=== PATIENT | male | born 1970 | race Caucasian/White ===

== ENCOUNTER → 2017-05-11 | Outpatient (CLI) | payer BC ==
[~2017-05-11] MED LIST: OXYC-57 PO; PRED20TA PO
--- NOTE | 2017-05-11 12:36 | DIAGNOSTIC IMAGING REPORT ---
KUB HISTORY: NEPHROLITHIASIS COMPARISON: KUB 02/11/2015. FINDINGS: The bowel gas pattern is unremarkable. There are no dilated loops of small bowel to suggest an obstruction. Stable calcification within the left deep pelvis consistent with a phlebolith. The right kidney is partially obscured by overlying bowel. No definite right renal calculi. No ureteral calculi. Multiple stones within the lower pole the left kidney with the largest measuring 4 mm. These remain unchanged. No pneumoperitoneum or pneumatosis. IMPRESSION: Stable left-sided nephrolithiasis. Electronically signed by: Primitivo Temple M.D. 05/11/2017 12:35 PM Dictated Date/Time: 05/11/2017 12:29 PM
== END | disposition home or self-care (01) ==
LOC: C.RAD 12:01
PROVIDERS: ATTEND Urology
DX: N20.0 Calculus of kidney (principal)

== ENCOUNTER 2017-10-07 14:51 | Emergency (ER) | payer BC, OTHER ==
[~2017-10-07] VITALS: Ht 180.3 cm; Wt 87.3 kg
[2017-10-07 15:02] VITALS: TEMP 36.5; Ht 180.3 cm; Wt 87.3 kg
[2017-10-07] MEDS ORDERED: HYDROmorphone INJ 1 MG/ML SYR IV STA (15:32)
[2017-10-07] MEDS ORDERED: ONDANSETRON INJ 2 MG/ML 2 ML VIAL IV STA (15:32)
[2017-10-07] MEDS ORDERED: KETOROLAC TROMETHAMINE 30 MG/ML VIAL IV STA (15:32)
[2017-10-07 15:53] LABS: BASO % 0.4 %; BASO ABS # 0.03 K/uL (0-0.2); EOS % 1.6 %; EOS ABS # 0.12 K/uL (0-0.5); HEMATOCRIT 43.8 % (42-52); HEMOGLOBIN 15.4 g/dL (14.0-18.0); IG# 0.02 K/uL (0.00-0.02); LYMPH % 28.2 %; LYMPH ABS # 2.18 K/uL (1.2-3.4); MEAN CELL VOLUME 87.8 fL (80-100); MEAN CORPUSCULAR HEMOGLOBIN 30.9 pg (25-34); MEAN CORPUSCULAR HGB CONC 35.2 g/dl (32-36); MEAN PLATELET VOLUME 10.4 fL (7.4-10.4); MONO % 6.1 %; MONO ABS # 0.47 K/uL (0.11-0.59); NEUT % 63.4 %; PLATELET COUNT 185 K/uL (130-400); RED CELL DISTRIBUTION WIDTH CV 13.3 % (11.5-14.5); RED CELL DISTRIBUTION WIDTH SD 42.5 fL (36.4-46.3); WHITE BLOOD COUNT 7.72 K/uL (4.8-10.8)
[2017-10-07 16:09] LABS: CREATININE 1.02 mg/dl (0.60-1.40); POTASSIUM 3.2 mmol/L (3.5-5.1)
[2017-10-07] MEDS ORDERED: ACETAMINOPHEN 500 MG TAB PO STA (16:53)
[2017-10-07] MEDS ORDERED: OXYCODONE HCL IR 5 MG TAB (IMMEDIATE RELEASE) PO STA (16:53)
--- NOTE | 2017-10-07 16:59 | DIAGNOSTIC IMAGING REPORT ---
ABDOMEN AND PELVIS CT WITHOUT CONTRAST CT DOSE: 896.37 mGy.cm HISTORY: L sided flank pain, prior h/o renal stone, +hematuria TECHNIQUE: Multiaxial CT images of the abdomen and pelvis were performed without the use of intravenous and oral contrast according to the standard department stone protocol. A dose lowering technique was utilized adhering to the principles of ALARA. COMPARISON STUDY: KUB 05/11/2017. FINDINGS: The lung bases are essentially clear. A few subcentimeter hypodense lesions within the right hepatic lobe. These are too small to characterize. The unenhanced spleen, adrenal glands, pancreas, and gallbladder are unremarkable. No retroperitoneal lymphadenopathy. No definite bowel wall thickening or obstruction. Normal appendix. A few colonic diverticula. The bladder is unremarkable. There is a 4 mm obstructing stone within the left ureteropelvic junction best seen on image 83. This results in mild left hydronephrosis. There is left perinephric edema. Multiple small bilateral renal calculi. IMPRESSION: 1. A 4 mm obstructing stone within the left ureteropelvic junction resulting in mild left hydronephrosis. 2. Bilateral nephrolithiasis. Electronically signed by: Primitivo Temple M.D. 10/07/2017 4:58 PM Dictated Date/Time: 10/07/2017 4:53 PM
[2017-10-07] MEDS ORDERED: TAMS0.4C38 PO (17:05)
[2017-10-07] MEDS ORDERED: OXYC1TAB3 PO (17:05)
--- NOTE | 2017-10-07 17:12 | EMERGENCY ROOM VISIT NOTE ---
History Report prepared by Luis: Summer Gill Under the Supervision of: Dr. Herb Mcnamara M.D. First contact with patient: 15:12 Chief Complaint: ABDOMINAL PAIN Stated Complaint: EXTREME PAIN L SIDE ABD Nursing Triage Summary: Pt c/o LLQ pain radiating into flank since this afternoon. Hematuria. "I do have a kidney stone so I'm thinking that's what it is". some diarrhea this am. denies n/v. History of Present Illness The patient is a 46 year old male with a past medical history of kidney stones and melanoma who presents to the ED with a cc of worsening left sided abdominal pain beginning this afternoon. The patient describes the pain as a sharp shooting pain that radiates from his back to his front. Positive hematuria and diaphoresis. Negative nausea, vomiting, fevers, chills, and recent trauma. Source of History: patient Onset: this afternoon Position: abdomen (left sided) Quality: sharp, other (shooting) Timing: worsening Associated Symptoms: + diaphoresis, + urinary symptoms (hematuria), No fevers, No chills, No nausea, No vomiting Review of Systems See HPI for pertinent positives and negatives. A total of ten systems were reviewed and were otherwise negative. Past Medical & Surgical Medical Problems: (1) Kidney stone (2) Melanoma Surgical Problems: (1) Hx of lithotripsy Family History No pertinent family history Social History Smoking Status: Never Smoker Marital Status: Housing Status: lives with significant other Occupation Status: employed Current/Historical Medications Scheduled Tamsulosin Hcl (Flomax), 0.4 MG PO DAILY Scheduled PRN Oxycodone Immediate Rel Tab (Roxicodone Ir), 5 MG PO Q6H PRN for Pain Allergies Coded Allergies: Ampicillin (Unverified Allergy, Intermediate, HIVES, 10/07/17) Erythromycin (Unverified Allergy, Unknown, HIVES, 10/07/17) Penicillins (Unverified Allergy, Unknown, HIVES, 10/07/17) Physical Exam Vital Signs Date Time Temp Pulse Resp B/P (MAP) Pulse Ox O2 Delivery O2 Flow Rate FiO2 10/07/17 17:46 88 18 178/64 99 Room Air 10/07/17 15:02 36.5 82 18 186/115 99 Room Air Physical Exam GENERAL: Awake, alert, uncomfortable-appearing,in pain, NAD HENT: Normocephalic, atraumatic. EYES: Normal conjunctiva. Sclera non-icteric. NECK: Supple. No nuchal rigidity. FROM. RESPIRATORY: CTAB, no rhonchi, wheezing, crackles CARDIAC: RRR, no MRG ABDOMEN: Soft, NTND, BS+ MSK: No chest wall TTP, no LE edema, left CVA TTP, left flank pain NEURO: GCS 15, CN 2-12 intact, moves all 4s on command SKIN: No rash or jaundice noted. Medical Decision & Procedures ER Provider Diagnostic Interpretation: Radiology results as stated below per my review and radiologist interpretation: ABDOMEN AND PELVIS CT WITHOUT CONTRAST CT DOSE: 896.37 mGy.cm HISTORY: L sided flank pain, prior h/o renal stone, +hematuria TECHNIQUE: Multiaxial CT images of the abdomen and pelvis were performed without the use of intravenous and oral contrast according to the standard department stone protocol. A dose lowering technique was utilized adhering to the principles of ALARA. COMPARISON STUDY: KUB 05/11/2017. FINDINGS: The lung bases are essentially clear. A few subcentimeter hypodense lesions within the right hepatic lobe. These are too small to characterize. The unenhanced spleen, adrenal glands, pancreas, and gallbladder are unremarkable. No retroperitoneal lymphadenopathy. No definite bowel wall thickening or obstruction. Normal appendix. A few colonic diverticula. The bladder is unremarkable. There is a 4 mm obstructing stone within the left ureteropelvic junction best seen on image 83. This results in mild left hydronephrosis. There is left perinephric edema. Multiple small bilateral renal calculi. IMPRESSION: 1. A 4 mm obstructing stone within the left ureteropelvic junction resulting in mild left hydronephrosis. 2. Bilateral nephrolithiasis. Electronically signed by: Primitivo Temple M.D. 10/07/2017 4:58 PM Dictated Date/Time: 10/07/2017 4:53 PM Laboratory Results 10/07/17 15:20 Red Blood Count 4.99, Mean Corpuscular Volume 87.8, Mean Corpuscular Hemoglobin 30.9, Mean Corpuscular Hemoglobin Concent 35.2, Mean Platelet Volume 10.4, Neutrophils (%) (Auto) 63.4, Lymphocytes (%) (Auto) 28.2, Monocytes (%) (Auto) 6.1, Eosinophils (%) (Auto) 1.6, Basophils (%) (Auto) 0.4, Neutrophils # (Auto) 4.90, Lymphocytes # (Auto) 2.18, Monocytes # (Auto) 0.47, Eosinophils # (Auto) 0.12, Basophils # (Auto) 0.03 10/07/17 15:20 Test 10/07/17 15:20 10/07/17 15:40 White Blood Count 7.72 K/uL (4.8-10.8) Red Blood Count 4.99 M/uL (4.7-6.1) Hemoglobin 15.4 g/dL (14.0-18.0) Hematocrit 43.8 % (42-52) Mean Corpuscular Volume 87.8 fL (80-100) Mean Corpuscular Hemoglobin 30.9 pg (25-34) Mean Corpuscular Hemoglobin Concent 35.2 g/dl (32-36) Platelet Count 185 K/uL (130-400) Mean Platelet Volume 10.4 fL (7.4-10.4) Neutrophils (%) (Auto) 63.4 % Lymphocytes (%) (Auto) 28.2 % Monocytes (%) (Auto) 6.1 % Eosinophils (%) (Auto) 1.6 % Basophils (%) (Auto) 0.4 % Neutrophils # (Auto) 4.90 K/uL (1.4-6.5) Lymphocytes # (Auto) 2.18 K/uL (1.2-3.4) Monocytes # (Auto) 0.47 K/uL (0.11-0.59) Eosinophils # (Auto) 0.12 K/uL (0-0.5) Basophils # (Auto) 0.03 K/uL (0-0.2) RDW Standard Deviation 42.5 fL (36.4-46.3) RDW Coefficient of Variation 13.3 % (11.5-14.5) Immature Granulocyte % (Auto) 0.3 % Immature Granulocyte # (Auto) 0.02 K/uL (0.00-0.02) Anion Gap 6.0 mmol/L (3-11) Est Creatinine Clear Calc Drug Dose 94.3 ml/min Estimated GFR () 100.3 Estimated GFR (Non- 86.5 BUN/Creatinine Ratio 11.1 (10-20) Calcium Level 9.0 mg/dl (8.5-10.1) Urine Color ORANGE Urine Appearance TURBID (CLEAR) Urine pH 7.5 (4.5-7.5) Urine Specific [place] 1.019 (1.000-1.030) Urine Protein TRACE (NEG) Urine Glucose (UA) NEG (NEG) Urine Ketones TRACE (NEG) Urine Occult Blood 3+ (NEG) Urine Nitrite NEG (NEG) Urine Bilirubin NEG (NEG) Urine Urobilinogen NEG (NEG) Urine Leukocyte Esterase TRACE (NEG) Urine WBC (Auto) 1-5 /hpf (0-5) Urine RBC (Auto) >30 /hpf (0-4) Urine Hyaline Casts (Auto) 1-5 /lpf (0-5) Urine Epithelial Cells (Auto) 10-20 /lpf (0-5) Urine Bacteria (Auto) NEG (NEG) Laboratory results reviewed by me Medications Administered Medications (Trade) Dose Ordered Sig/Ce Route Start Time Stop Time Status Last Admin Dose Admin Ondansetron HCl (Zofran Inj) 4 mg NOW STAT IV 10/07/17 15:32 10/07/17 15:33 DC 10/07/17 15:40 4 MG Ketorolac Tromethamine (Toradol Inj) 30 mg NOW STAT IV 10/07/17 15:32 10/07/17 15:33 DC 10/07/17 15:41 30 MG Hydromorphone HCl (Dilaudid Inj) 1 mg NOW STAT IV 10/07/17 15:32 10/07/17 15:33 DC 10/07/17 15:41 1 MG Oxycodone HCl (Roxicodone Immediate Rel Tab) 5 mg NOW STAT PO 10/07/17 16:53 10/07/17 16:55 DC 10/07/17 17:14 5 MG Acetaminophen (Tylenol Tab) 1,000 mg NOW STAT PO 10/07/17 16:53 10/07/17 16:55 DC 10/07/17 17:14 1,000 MG Tamsulosin HCl (Flomax Cap) 0.4 mg STK-MED ONCE .ROUTE 10/07/17 17:40 10/07/17 17:41 DC 10/07/17 17:40 0.4 MG Oxycodone HCl (Roxicodone Immediate Rel 5MG Home Pack) 1 homepack STK-MED ONCE PO 10/07/17 17:41 10/07/17 17:42 DC 10/07/17 17:41 1 [facility] Course 1528: The patient was evaluated in room C3. A complete history and physical exam was performed. 1645: I reevaluated the patient and he is doing okay. 172: I reevaluated the patient. Discussed results and discharge instructions: he verbalized understanding and agreement. The patient is ready for discharge. Medical Decision The patient is a 46 year old male with a past medical history of kidney stones and melanoma who presents to the ED with a cc of worsening left sided abdominal pain beginning this afternoon. Etiologies such as renal colic, appendicitis, diverticulitis, mesenteric ischemia, aortic pathology, infections, inflammatory bowel disease, PUD, biliary pathology, UTI, as well as others were entertained. Patient was seen and evaluated the bedside. Patient had complained of some left -sided flank pain. Patient does have a known history of nephrolithiasis however it has been sometime since he has had issues with this. Patient did complain of some hematuria. Patient did have blood work that was completed along with pain control CT to look for kidney stone. Patient's blood work was fairly unremarkable. Patient white blood cell count normal. Patient kidney function with a normal GFR. Patient's urinalysis consistent with blood but without infection. Patient's CT did show a 4 mm obstructing stone at the UPJ. Mild hydro present. There does appear to be a possible kidney stone more distally. Patient was informed of these findings. Patient does have some mild [place]; however, the patient has been urinating well and the patient's pain is improved with normal kidney function. Given the size of the stone, I believe he is suitable for outpatient follow-up and treatment. Patient was given return precautions and warning signs which were to return to the emergency department. Patient was given a first dose of Flomax. Patient was given Flomax as well as pain medication as Rx's and told to take this pain medication only after taking Motrin and Tylenol if he still had discomfort. Patient was told to adequately hydrate with clear liquids and to try to avoid things like caffeine and alcohol. Patient was told he may follow up with his primary urologist as an outpatient as needed. Patient was deemed suitable for outpatient follow-up and treatment at this time. Patient was given strict follow -up, discharge, and return precautions. All questions were answered. Patient was deemed suitable for outpatient follow-up at this time. Patient agreed with the plan of care and was safely discharged home. The chart was completed utilizing [employer] Speech voice recognition software. Grammatical errors, random word insertions, pronoun errors, and incomplete sentences are an occasional consequence of this system due to software limitations, ambient noise, and hardware issues. Any formal questions or concerns about the content, text, or information contained within the body of this dictation should be directly addressed to the physician for clarification. Medication Reconcilliation Current Medication List: was personally reviewed by me Blood Pressure Screening Patient's blood pressure: Elevated blood pressure Blood pressure disposition: Elevated BP felt to be situational Impression Primary Impression: Kidney stone Additional Impression: Hypokalemia Scribe Attestation The scribe's documentation has been prepared under my direction and personally reviewed by me in its entirety. I confirm that the note above accurately reflects all work, treatment, procedures, and medical decision making performed by me. Departure Information Dispostion Home / Self-Care Prescriptions Oxycodone Immediate Rel Tab (ROXICODONE IR) 5 Mg Tab 5 MG PO Q6H Y for Pain, #15 TAB Prov: Herb Mcnamara M.D. 10/07/17 Tamsulosin Hcl (FLOMAX) 0.4 Mg Cap 0.4 MG PO DAILY for 10 Days, #10 CAP Prov: Herb Mcnamara M.D. 10/07/17 Referrals No Doctor, Assigned (PCP) Jamal Sanchez MD Forms Call Back Authorization, HOME CARE DOCUMENTATION FORM, IMPORTANT VISIT INFORMATION Patient Instructions Kidney Stones - [facility], Kidney Stones [facility], [facility] Additional Instructions Please return to the emergency department if you have worsening or recurrent symptoms not amenable to at-home treatment. Please call for a follow-up appointment with her primary care physician. Please take your medications as prescribed. If you have other concerns and/or complaints please feel free to also call your primary care physician's office or return the ED for further evaluation, management, and treatment. You may take 600 mg Ibuprofen every 6 hours as needed for pain with food for no more than 2 consecutive days. You may take tylenol 1000 mg every 6 hours as needed for pain. You may take motrin and tylenol separately or at the same time. Take your medications as prescribed. Please follow-up with your urologist as needed. You have been examined and treated today on an emergency basis only. This is not a substitute for, or an effort to provide, complete comprehensive medical care. It is impossible to recognize and treat all injuries or illnesses in a single emergency department visit. It is therefore important that you follow up closely with [facility], your PCP, and/or your specialist(s). Call as soon as possible for an appointment. Thank you for your time and consideration. I look forward to speaking with you again soon. Please don't hesitate to call us if you have any questions. Problem Qualifiers
[2017-10-07] MEDS ORDERED: OXYCODONE IR HOME PACK PO ONE ×2 (17:15→17:41)
[2017-10-07] MEDS ORDERED: TAMSULOSIN HCL 0.4 MG CAP PO ONE (17:15)
[2017-10-07] MEDS ORDERED: TAMSULOSIN HCL 0.4 MG CAP ONE (17:40)
[2017-10-07 17:46] VITALS: BP 178/64; PULSE 88; O2SAT 99
== END 2017-10-07 17:50 | disposition home or self-care (01) ==
LOC: C.EDB 14:52 → C.EDC 17:50
DX: N20.0 Calculus of kidney (principal); E87.6 Hypokalemia; Z85.820 Personal history of malignant melanoma of skin

== ENCOUNTER → 2017-10-09 | Outpatient (CLI) | payer OTHER ==
[~2017-10-09] MED LIST changes: +FLM4 PO; -OXYC-57 PO; +OXYC1TAB3 PO; -PRED20TA PO; +TAMS0.4C38 PO
--- NOTE | 2017-10-09 15:49 | DIAGNOSTIC IMAGING REPORT ---
KUB CLINICAL HISTORY: N20.0 [id number] COMPARISON STUDY: 05/11/2017 , CT scan dated 10/07/2017 FINDINGS: The renal shadows are partially obscured by overlying bowel gas and fecal material. Multiple left renal calculi are visualized, the largest of which measures 3 mm. There is a 4 mm calcification within the left pelvic basin which was not present on the prior study. This is viewed as suspicious for a distal left ureteral calculus. IMPRESSION: 1. 4 mm left pelvic basin calcification, suspicious for distal left ureteral calculus 2. Left-sided nephrolithiasis 3. The right renal calculus described on the recent CT scan is difficult to visualize Electronically signed by: Herbert Butler M.D. 10/09/2017 3:47 PM Dictated Date/Time: 10/09/2017 3:46 PM
[2017-10-09 18:53] LABS: BASO % 0.4 %; BASO ABS # 0.03 K/uL (0-0.2); EOS % 2.4 %; EOS ABS # 0.19 K/uL (0-0.5); HEMATOCRIT 41.3 % (42-52); HEMOGLOBIN 14.7 g/dL (14.0-18.0); IG# 0.02 K/uL (0.00-0.02); LYMPH % 27.7 %; LYMPH ABS # 2.19 K/uL (1.2-3.4); MEAN CELL VOLUME 87.3 fL (80-100); MEAN CORPUSCULAR HEMOGLOBIN 31.1 pg (25-34); MEAN CORPUSCULAR HGB CONC 35.6 g/dl (32-36); MEAN PLATELET VOLUME 10.2 fL (7.4-10.4); MONO % 10.5 %; MONO ABS # 0.83 K/uL (0.11-0.59); NEUT % 58.7 %; NEUT ABS # 4.65 K/uL (1.4-6.5); PLATELET COUNT 183 K/uL (130-400); RED CELL DISTRIBUTION WIDTH CV 13.3 % (11.5-14.5); RED CELL DISTRIBUTION WIDTH SD 42.7 fL (36.4-46.3); WHITE BLOOD COUNT 7.91 K/uL (4.8-10.8)
[2017-10-09 19:17] LABS: BLOOD UREA NITROGEN 9 mg/dl (7-18); CARBON DIOXIDE 26 mmol/L (21-32); CREATININE 0.87 mg/dl (0.60-1.40); POTASSIUM 3.6 mmol/L (3.5-5.1); SODIUM 137 mmol/L (136-145)
== END | disposition home or self-care (01) ==
LOC: C.RAD 15:16
PROVIDERS: ATTEND Nurse Practitioner Adult Health
DX: Z00.00 Encounter for general adult medical examination without abnormal findings (principal); N20.0 Calculus of kidney

== ENCOUNTER → 2017-10-10 | Outpatient (CLI) | payer OTHER ==
--- NOTE | 2017-10-10 18:36 | DIAGNOSTIC IMAGING REPORT ---
TWO VIEW CHEST CLINICAL HISTORY: Nephrolithiasis. Preoperative examination. FINDINGS: PA and lateral chest radiographs are obtained. No prior studies are available for comparison at the time of dictation. The cardiomediastinal silhouette is unremarkable. The lungs and pleural spaces are clear. There is no pneumothorax. The bony thorax appears intact. IMPRESSION: No active disease in the chest. Electronically signed by: Brenton Little M.D. 10/10/2017 6:34 PM Dictated Date/Time: 10/10/2017 6:34 PM
== END | disposition home or self-care (01) ==
LOC: C.RAD 17:41
PROVIDERS: ATTEND Nurse Practitioner Adult Health
DX: N20.0 Calculus of kidney (principal)

== ENCOUNTER → 2017-10-12 | Day surgery (SDC) | payer OTHER ==
[2017-10-10 13:28] VITALS: Ht 180.3 cm; Wt 83.6 kg
[~2017-10-12] VITALS: Ht 180.3 cm; Wt 83.6 kg
[~2017-10-12] MED LIST changes: +CIPROFLOXACIN / D5W 400 MG IV SCH; +LACTATED RINGER'S 1000ML 1,000 ML IV SCH; -TAMS0.4C38 PO
--- NOTE | 2017-10-15 13:27 | EDITING REQUIRED CODING QUERY ---
CODING CLARIFICATION Please specify below the reason for the cancelled procedure on 10/12/17: REASON PROCEDURE CANCELLED: NSAID use for renal stone, distal stone passed Thank you for your assistance, Shoshana Bland - Validation Technician
== END | disposition home or self-care (01) ==
LOC: X.SURG 08:48
PROVIDERS: ATTEND Urology
DX: N20.1 Calculus of ureter (principal); Z53.09 Procedure and treatment not carried out because of other contraindication; L57.0 Actinic keratosis; N40.0 Benign prostatic hyperplasia without lower urinary tract symptoms; Z85.828 Personal history of other malignant neoplasm of skin; Z80.8 Family history of malignant neoplasm of other organs or systems

== ENCOUNTER → 2017-10-12 | Outpatient (CLI) | payer OTHER ==
[~2017-10-12] MED LIST changes: -CIPROFLOXACIN / D5W 400 MG IV SCH; -LACTATED RINGER'S 1000ML 1,000 ML IV SCH
--- NOTE | 2017-10-12 08:46 | DIAGNOSTIC IMAGING REPORT ---
KUB HISTORY: N20.0 Nephrolithiasis BE DONE EITHER THE NIGHT BEFORE OR MORNI COMPARISON: KUB 10/09/2017. FINDINGS: The bowel gas pattern is unremarkable. There are no dilated loops of small bowel to suggest an obstruction. Stable left renal calculi with the largest in the lower pole measuring 3 mm. The right renal shadow is obscured by overlying bowel gas. No definite right renal calculi. No ureteral calculi. Stable round calcification within the left deep pelvis consistent with a phlebolith. No pneumoperitoneum or pneumatosis. IMPRESSION: 1. Stable left-sided nephrolithiasis. 2. No ureteral calculi. Electronically signed by: Primitivo Temple M.D. 10/12/2017 8:45 AM Dictated Date/Time: 10/12/2017 8:43 AM
== END | disposition home or self-care (01) ==
LOC: C.RAD 08:07
PROVIDERS: ATTEND Nurse Practitioner Adult Health
DX: N20.0 Calculus of kidney (principal)

== ENCOUNTER → 2017-10-19 | Day surgery (SDC) | payer OTHER ==
[2017-10-16 08:59] VITALS: Ht 180.3 cm; Wt 83.6 kg
[~2017-10-19] VITALS: Ht 180.3 cm; Wt 83.6 kg
[~2017-10-19] MED LIST changes: +ATROPINE SULFATE 0.1 MG/ML 5ML SYR IV PRN; +CIPROFLOXACIN 400MG / D5W IV SCH; +DEXAMETHASONE SOD INJ 4 MG/ML VIAL IV PRN; +DEXAMETHASONE SOD INJ 4 MG/ML VIAL ONE; +EpHEDrine SULFATE INJ 50 MG/ML AMP IV PRN; +FENTANYL CITRATE INJ 50 MCG/1 ML 2 ML VIAL IV PRN; +FENTANYL CITRATE INJ 50 MCG/1 ML 2 ML VIAL ONE; +KETOROLAC TROMETHAMINE 30 MG/ML VIAL IV. PRN; +KETOROLAC TROMETHAMINE 30 MG/ML VIAL ONE; +LABETALOL HCL IV 5 MG/ML 20ML IV PRN; +LACTATED RINGER'S 1000ML 1,000 ML IV SCH; +LIDOCAINE HCL 2% 2 ML VIAL (20MG/ML) ONE; +METOCLOPRAMIDE HCL INJ 5 MG/ML 2 ML VIAL IV PRN; +MIDAZOLAM HCL 1 MG/ML 2ML VIAL ONE; +MoRPHine SULFATE 10 MG/ML CARP/VIAL IV PRN; +ONDANSETRON INJ 2 MG/ML 2 ML VIAL IV PRN; +ONDANSETRON INJ 2 MG/ML 2 ML VIAL ONE; +OXYCODONE/ACETAMINOPHEN 7.5-325 TAB PO PRN; +PHENYLEPHRINE 100MCG/ML 5ML SYR IV PRN; +PHENYLEPHRINE HCL INJ 10 MG/ML VIAL ONE; +PROPOFOL IV EMULSION 10 MG/ML 20 ML VIAL IV ONE
--- NOTE | 2017-10-19 09:13 | History & Physical Bridge - SC ---
H&P Re-Evaluation Bridge Note: I have examined the patient, reviewed the History & Physical and in the interval since the performance of the History & Physical I have noted the following changes of clinical significance: No changes noted
--- NOTE | 2017-10-19 09:18 | Discharge Instructions ---
Discharge Instructions Date of Service Oct 19, 2017. Admission Reason for Admission: Stones Discharge Discharge Diagnosis / Problem: L Stone Discharge Goals Goal(s): Decrease discomfort, Improve function Activity Recommendations Activity Limitations: resume your previous activity Lifting Limitations: gradually increase as tolerated Exercise/Sports Limitations: as tolerated Shower/Bathe: no limitations . Instructions / Follow-Up Instructions / Follow-Up May have blood in urine or pass small sediments or fragments. Call if any fevers or chills. May have flank pain or bruising. Current Hospital Diet Patient's current hospital diet: Discharge Diet Recommended Diet: Regular Diet Procedures Procedures Performed: L ESWL Pending Studies Studies pending at discharge: no Medical Emergencies . Who to Call and When: Medical Emergencies: If at any time you feel your situation is an emergency, please call 911 immediately. . Non-Emergent Contact Non-Emergency issues call your: Primary Care Provider, Urologist . . "Provider Documentation" section prepared by Terrence Mehta,. . VTE Core Measure Inpt VTE Proph given/why not?: SCD's
--- NOTE | 2017-10-19 10:48 | [facility] Operative Report ---
Operative Report Operative Date Oct 19, 2017. Pre-Operative Diagnosis L Stone Post-Operative Diagnosis Same Procedure(s) Performed L ESWL Surgeon Tyson Sap Basis Administrator Surgeon(s) None Estimated Blood Loss None Findings Left stone visualized by Fluroscopy. Specimens None Anesthesia General Complication(s) None Disposition Recovery Room / PACU Indications Symptomatic stone on left. Risks and benefits discussed at length. Patient agreeable. Description of Procedure Patient was consented and brought back to the operating room. Patient was placed under anesthesia in the supine position. Patient was prepped and draped in the regular sterile fashion. A time out was completed. With the time out completed, The patient was assessed with fluoroscopy. The stone was identified and position was triangulated. At this point, the shock waves commenced. The stone was monitored throughout the process with fluoroscopy to assess progression and maintain position. The stone was pulverized with 2500 shocks at a maximum voltage of 5 with a total fluoroscopic time of 2:13. With the stone treated, the procedure ended. The patient was cleaned, aroused from anesthesia, and transferred to the pacu in stable condition having tolerated the procedure well with no complications. I was present and participated in all aspects of the procedure. The patient will be monitored in the PACU until transferred. I attest to the content of the Intraoperative Record and any orders documented therein. Any exceptions are noted below.
[2017-10-19 11:23] VITALS: TEMP 36.4
--- NOTE | 2017-10-19 11:39 | Anesthesia Progress Nt - [facility] ---
Anesthesia Post Op Note Date & Time Oct 19, 2017 at 11:39 Vital Signs Pain Intensity: 0 Vital Signs Past 12 Hours Date Time Temp Pulse Resp B/P (MAP) Pulse Ox O2 Delivery O2 Flow Rate FiO2 10/19/17 11:23 36.4 76 20 150/101 (117) 96 Room Air 10/19/17 11:18 36.7 10/19/17 11:16 73 15 10/19/17 11:16 74 15 147/102 (114) 98 10/19/17 11:15 Room Air 10/19/17 11:11 71 12 144/103 (110) 100 10/19/17 11:11 71 12 10/19/17 11:06 73 14 10/19/17 11:06 72 14 138/96 (102) 100 10/19/17 11:01 76 14 150/104 (112) 100 10/19/17 11:01 75 14 10/19/17 10:56 81 18 100 10/19/17 10:56 81 18 10/19/17 10:55 132/97 (109) 10/19/17 10:51 36.5 79 18 132/97 100 Diffusion Mask 5 10/19/17 08:28 36.8 89 18 143/100 (114) 98 Room Air Notes Mental Status: alert / awake / arousable, participated in evaluation Pt Amnestic to Procedure: Yes Nausea / Vomiting: adequately controlled Pain: adequately controlled Airway Patency, RR, SpO2: stable & adequate BP & HR: stable & adequate Hydration State: stable & adequate Anesthetic Complications: no major complications apparent
[2017-10-19 11:46] VITALS: BP 141/94; PULSE 77; O2SAT 99
== END | disposition home or self-care (01) ==
LOC: X.SURG 07:27
PROVIDERS: ATTEND Urology
DX: N20.1 Calculus of ureter (principal); Z88.0 Allergy status to penicillin; Z98.890 Other specified postprocedural states; Z85.828 Personal history of other malignant neoplasm of skin; Z85.820 Personal history of malignant melanoma of skin; Z80.8 Family history of malignant neoplasm of other organs or systems

== ENCOUNTER → 2017-10-19 | Outpatient (CLI) | payer OTHER ==
[~2017-10-19] MED LIST changes: -ATROPINE SULFATE 0.1 MG/ML 5ML SYR IV PRN; -CIPROFLOXACIN 400MG / D5W IV SCH; -DEXAMETHASONE SOD INJ 4 MG/ML VIAL IV PRN; -DEXAMETHASONE SOD INJ 4 MG/ML VIAL ONE; -EpHEDrine SULFATE INJ 50 MG/ML AMP IV PRN; -FENTANYL CITRATE INJ 50 MCG/1 ML 2 ML VIAL IV PRN; -FENTANYL CITRATE INJ 50 MCG/1 ML 2 ML VIAL ONE; -KETOROLAC TROMETHAMINE 30 MG/ML VIAL IV. PRN; -KETOROLAC TROMETHAMINE 30 MG/ML VIAL ONE; -LABETALOL HCL IV 5 MG/ML 20ML IV PRN; -LACTATED RINGER'S 1000ML 1,000 ML IV SCH; -LIDOCAINE HCL 2% 2 ML VIAL (20MG/ML) ONE; -METOCLOPRAMIDE HCL INJ 5 MG/ML 2 ML VIAL IV PRN; -MIDAZOLAM HCL 1 MG/ML 2ML VIAL ONE; -MoRPHine SULFATE 10 MG/ML CARP/VIAL IV PRN; -ONDANSETRON INJ 2 MG/ML 2 ML VIAL IV PRN; -ONDANSETRON INJ 2 MG/ML 2 ML VIAL ONE; -OXYCODONE/ACETAMINOPHEN 7.5-325 TAB PO PRN; -PHENYLEPHRINE 100MCG/ML 5ML SYR IV PRN; -PHENYLEPHRINE HCL INJ 10 MG/ML VIAL ONE; -PROPOFOL IV EMULSION 10 MG/ML 20 ML VIAL IV ONE
--- NOTE | 2017-10-19 07:38 | DIAGNOSTIC IMAGING REPORT ---
KUB CLINICAL HISTORY: N20.0 nephrocalcinosis COMPARISON STUDY: 10/12/2017 FINDINGS: Stable left renal nephrocalcinosis. No change from the prior exam. No significant paravertebral calcifications. Right kidney is obscured due to overlying bowel content. Left pelvic vascular calcification. IMPRESSION: Unchanging lower pole left renal nephrocalcinosis. No new or interval finding. The above report was generated using voice recognition software. It may contain grammatical, syntax or spelling errors. Electronically signed by: Steven Dorantes M.D. 10/19/2017 7:37 AM Dictated Date/Time: 10/19/2017 7:36 AM
== END | disposition home or self-care (01) ==
LOC: C.RAD 07:05
PROVIDERS: ATTEND Nurse Practitioner Adult Health
DX: N20.0 Calculus of kidney (principal)

== ENCOUNTER → 2017-10-29 | Outpatient (CLI) | payer OTHER ==
--- NOTE | 2017-10-29 18:19 | DIAGNOSTIC IMAGING REPORT ---
KUB CLINICAL HISTORY: N20.1 Ureteral calculus, left COMPARISON STUDY: 10/19/2017 FINDINGS: The renal shadows are partially secured by bowel gas and fecal material. There are multiple bilateral renal calculi. There is a stable 4 mm left pelvic basin calcification. This is consistent with a phlebolith visualized on the September 2017 CT scan. IMPRESSION: 1. Bilateral nephrolithiasis 2. No ureteral calculi are visualized on conventional radiographic imaging Electronically signed by: Herbert Butler M.D. 10/29/2017 6:18 PM Dictated Date/Time: 10/29/2017 6:14 PM
== END | disposition home or self-care (01) ==
LOC: C.RAD 18:00
PROVIDERS: ATTEND Nurse Practitioner Adult Health
DX: N20.0 Calculus of kidney (principal)

== ENCOUNTER → 2017-10-30 | Outpatient (CLI) | payer OTHER | END | disposition home or self-care (01) | LOC: C.LABSPEC 16:59 | PROVIDERS: ATTEND Urology | DX: N20.0 Calculus of kidney (principal) ==